=== PATIENT | female | born 2000 | race Caucasian/White ===

== ENCOUNTER 2020-07-05 12:04 | Outpatient (NON) | payer OTHER, SELFPAY ==
[2020-07-05 22:39] LABS: SARS-CoV-2 RNA PCR Negative
== END 2020-07-05 12:05 ==
LOC: ANHCOVIDDT 12:06
PROVIDERS: PCP Family Medicine; Visit Provider Physician Assistant
DX: J02.9 Acute pharyngitis, unspecified (principal); Z20.828 Contact with and (suspected) exposure to other viral communicable diseases
CPT/HCPCS: 87635; C9803; U0003

== ENCOUNTER 2023-11-14 15:46 | Outpatient (CLI) | payer OTHER, SELFPAY ==
--- NOTE | ~2023-11-14 | XR_ITS ---
EXAMINATION: XR abdomen/kub 1V DATE: 11/14/2023 16:08 INDICATION: Left lower quadrant abdominal pain. TECHNIQUE: A supine view of the abdomen on 2 radiographs was obtained. COMPARISON: None. FINDINGS: There are no dilated loops of bowel. There is a moderate volume of stool in the colon. Ther e is a 4 mm calcification in left pelvis, likely a phlebolith. IMPRESSION: 1. Normal bowel gas pattern. Reviewed, dictated and finalized at location E. DENTIAL SERVICE TECHNICIAN
== END 2023-11-14 15:47 | disposition home or self-care (01) ==
LOC: ANHIMG 15:51
PROVIDERS: PCP Family Medicine; Visit Provider Physician Assistant
DX: R10.32 Left lower quadrant pain (principal)
CPT/HCPCS: 74018

== ENCOUNTER 2024-09-06 16:37 | Outpatient (CLI) | payer OTHER, SELFPAY ==
--- NOTE | ~2024-09-06 | XR_ITS ---
EXAMINATION: XR chest 2V DATE: 09/06/2024 16:53 INDICATION: Fever TECHNIQUE: frontal and lateral views of the chest were obtained. COMPARISON: None FINDINGS: The lungs are clear with no focal airspace opacities, pulmonary edema, pleural effusion or pneumothor ax. The cardiomediastinal silhouette is normal. Visualized bones and soft tissues are unremarkable. IMPRESSION: 1. No acute cardiopulmonary disease. Reviewed, dictated and finalized at location B. STANT BROKER
== END 2024-09-06 16:38 | disposition home or self-care (01) ==
LOC: MICIMG 16:38
PROVIDERS: PCP Family Medicine; Visit Provider Physician Assistant Medical
DX: R50.9 Fever, unspecified (principal)
CPT/HCPCS: 71046

== ENCOUNTER 2024-10-06 10:48 | Outpatient (CLI) | payer OTHER, SELFPAY ==
--- NOTE | ~2024-10-06 | XR_ITS ---
TECHNIQUE: Hysterosalpingogram was performed by Dr. Alon Mina MD with fluoroscopic guidance. I was present to obtain fluoroscopic images. FINDINGS: Spiral Gear Generator radiograph demonstrates an unremarkable pelvis. Fluoroscopic images demonstrates nor mal appearing endometrial cavity which has been cannulated. Upon injection of contrast, both fallopi an tubes opacify and are normal in appearance. There is free spillage bilaterally. Uterus is withou t evidence of synechia. IMPRESSION: Patent fallopian tubes. Reviewed, dictated and finalized at location A. STED LIVING HOME DIRECTOR IMPRESSION: Patent fallopian tubes.
--- OUTSIDE RECORDS SUMMARY | 2024-10-06 11:57 | XMS_ITS | Clinical Summary ---
Author Organization [facility] Address [address] [place] [address] Care Team Providers Care Extrusion Machine Operator Name Role Phone Sukh Lockwood MD Unavailable [phone] Pablo Lockwood MD Primary Care Provider Allergies No known active allergies Medications acetaminophen-co deine (TYLENOL with CODEINE #3) 300-30 mg per tablet Take 1 tablet by mouth every 4 (four) hours as needed for pain 20 tablet 03/06/2023 Active Active Problems Problem Noted Date Diagnosed Date Acute appendicitis, unspecified acute appendicit is type 03/06/2023 S/P laparoscopic appendectomy 03/06/2023 Social History Tobacco Use Types Packs/Day Years Used Date Smoking Tobacco: Never Smokeless Tobacco: Never Tobacco Cessation:Counseling Given: Not Answered Social Connection and Isolat ion Panel [NHANES] Answer Date Recorded In a typical week, how many times do you talk on the phone with family, friends, or neighbors? More than three times a week 03/07/2023 How often do you get togethe r with friends or relatives? More than three times a week 03/07/2023 How often do you attend chur ch or lutheran services? Never 03/07/2023 Do you belong to any clubs o r organizations such as temple groups, unions, fraternal or athletic groups, or school groups? No 03/07/2023 How often do you attend meet ings of the clubs or organizations you belong to? Never 03/07/2023 Are you , , di vorced, , never , or living with a partner? Living with partner 03/07/2023 Overall Financial Resource Strain (CARDIA) Answe r Date Recorded How hard is it for you to pa y for the very basics like food, housing, medical care, and heating? Not hard at all 03/07/2023 Hunger Vital Sign Answer Date Recorded Within the past 12 months, y ou worried that your food would run out before you got the money to buy more. Never true 03/07/20 23 Within the past 12 months, t he food you bought just didn't last and you didn't have money to get more. Never true 03/07/2023 PRAPARE - Transportation Answer Date Re corded In the past 12 months, has l ack of transportation kept you from medical appointments or from getting medications? No 02/08 In the past 12 months, has l ack of transportation kept you from meetings, work, or from getting things needed for daily living? No 03/07/2023 Housing Stability Vital Sign Answer Quinton e Recorded In the last 12 months, was t here a time when you were not able to pay the mortgage or rent on time? No 03/07/2023 In the last 12 months, how many places have you lived? 1 03/07/2023 In the last 12 months, was t here a time when you did not have a steady place to sleep or slept in a fdc (including now)? No 03/07/2023 Personal Safety Answer Date Recorded Getting School Help Needed Not on file 03/21 Comments Unknown Sex and Gender Information Value Date Recorded Sex Assigned at Not on file Legal Sex Female 1:13 AM COLD HEADER Gender Identity Not on file Sexual Orientation Not on file Obstetrics History Last Filed Vital Signs Vital Sign Reading Time Taken Comments Blood Pressure 114/66 03/07/2023 11:17 AM CDT Pulse 83 03/07/2023 11:17 AM CDT Temperature 36.8 ??C (98.2 ??F) 03/07/2023 11:17 AM C DT Respiratory Rate 18 03/07/2023 11:17 AM CDT Oxygen Saturation 99% 03/07/2023 11:17 AM CDT Inhaled Oxygen Concentration - - Weight 74.8 kg (165 lb) 03/06/2023 2:33 PM CDT Height 157.5 cm (5' 2 ) 03/06/2023 2:33 PM CDT Body Mass Index 30.18 03/06/2023 2:33 PM CDT Plan of Treatment Health Maintenance Due Date Last Done Comments Cervical Cancer Screening 1998 Depression Screening 1998 Hepatitis C Screening 1998 HPV Vaccines (1 - 3-dose series) 2013 Regular Well Visit/Exam 18-64 2016 DTaP/Tdap/Td Vaccine (7 - Td or Tdap) 04/17/2020 04/17/2010, 02/02/2004, 07/01/2000, Additional history exists Influenza Vaccine (#1) 2024 Pneumococcal vaccine <65 Aged Out 001, 07/01/2000, 04/04/1999 No longer eligible based on patient's age to complete this topic Varicella Vaccines Completed 04/17/2010, 12/11/1999 Insurance [facility] CHOICE PLUS [facility] CHOICE PLUS Advance Directives For more information, please contact: [phone] * Full Code (Latest Code Status on File) Date Activated Date Inactivated Comments 03/06/2023 8:10 PM 03/07/2023 6:30 PM Care Teams Extrusion Machine Operator Relationship Specialty Start Date End Date Pablo Lockwood MD [address] [facility] [address] [place] [address] PCP - General Family Medicine 03/07/23 Sukh Lockwood MD [address] [place] [id number] Consulting Physician General Surgery 03/06/23
--- OUTSIDE RECORDS SUMMARY | 2024-10-06 11:57 | XMS_ITS | Clinical Summary ---
Author Organization [facility] Address [address] [place] [address]. [place] [address] [place] [address] Care Team Providers Care Mailroom Associate Name Role Phone Pablo Lockwood MD Primary Care Provider [phone] Allergies No known active allergies Medications azithromycin (ZITHROMAX) 250 MG tabletIndicatio ns:Bronchitis Take 2 tablets by mouth on day one then 1 daily for four days. 6 tablet 09/02/2024 Active albuterol sulfate HFA 108 (90 Base) MCG/ACT inhalerIndicati ons:Wheezing Inhale 2 puffs into the lungs every 6 (six) hours as needed for Wheezing. 18 g 09/02/2024 Active Active Problems No known active problems Encounters Date Type Department Care Team Description 09/02/2024 3:00 PM CLINIC BUSINESS MANAGER Office Visit [facility] Family & Internal Medicine [facility] [address] [place] [address] Nora Us PA URI (Cough, chest pain, shortness of breath, earache x 2 days) 09/02/2024 Travel from Last 3 Months Social History Tobacco Use Types Packs/Day Years Used Date Smoking Tobacco: Never Passive Smoke Exposure: Never Smokeless Tobacco: Never Tobacco Cessation:Counseling Given: No Comments No Sex and Gender Information Value Date Recorded Sex Assigned at Female 11/26/2023 8:08 AM CDT Legal Sex Female 8:10 PM CDT Gender Identity Female 11/26/2023 8:08 AM CDT Sexual Orientation Straight 11/26/2023 8: 08 AM CDT Last Filed Vital Signs Vital Sign Reading Time Taken Comments Blood Pressure 128/84 09/02/2024 3:08 PM CLINIC BUSINESS MANAGER Pulse 89 09/02/2024 3:08 PM CLINIC BUSINESS MANAGER Temperature 36.9 ??C (98.5 ??F) 09/02/2024 3:08 PM CS T Respiratory Rate 20 09/02/2024 3:08 PM CLINIC BUSINESS MANAGER Oxygen Saturation 98% 09/02/2024 3:08 PM CLINIC BUSINESS MANAGER Inhaled Oxygen Concentration - - Weight 78.2 kg (172 lb 6.4 oz) 09/02/2024 3:08 P M CLINIC BUSINESS MANAGER Height 157.5 cm (5' 2 ) 09/02/2024 3:08 PM CLINIC BUSINESS MANAGER Body Mass Index 31.53 09/02/2024 3:08 PM CLINIC BUSINESS MANAGER Plan of Treatment Health Maintenance Due Date Last Done Comments Cervical Cancer Screening Pap Smear (Age 21 to 29) Every 3 Years 1998 Cervical Cancer Screening 1998 Hepatitis B Vaccines (2 of 3 - 3-dose series) 1998 1998 Annual Physical 2001 PHQ-2 (Physician [place]) 2010 HPV Vaccines (1 - 3-dose series) 2013 Hepatitis C 2016 DTaP, Tdap and Td Vaccines (6 - Td or Tdap) 04/17/2020 04/17/2010, 02/02/2004, 07/01/2000, Additional history exists COVID-19 Vaccine ( season) 2024 Influenza Adult (#1) 2024 PHQ-2 (Physician [place]) 09/08/2024 Pneumococcal Vaccine: Pediatrics (0 to 5 Years) and At-Risk Patients (6 to 64 Years) Aged Out 12/01/2000, 07/01/2000, 04/04/1999 No longer eligible based on patient's age to complete this topic Meningococcal Vaccine Completed 03/25/2016, 010 Meningococcal B Vaccine Aged Out No l onger eligible based on patient's age to complete this topic RSV Immunizations Under 20 Months Aged Out No longer eligible based on patient's age to complete this topic Procedures Procedure Name Priority Date/Time Associated Diagnosis Comments CORONAVIRUS (COVID-19) INFLUENZA A & B ANTIGEN IA PANEL Routine 09/02/2024 Suspected COVID-19 virus infection from Last 3 Months Results * CORONAVIRUS (COVID-19) INFLUENZA A & B ANTIGEN IA PANEL (09/02/2024) CORONAVIRUS ANTIGEN IA NEGATIVE NEGATIVE [id number], [place] INFLUENZA A NEGATIVE NEGATIVE [id number], [place] INFLUENZA B NEGATIVE NEGATIVE [id number], [place] Internal Control: VALID VALID [id number], [place] NASAL STRUCTURE / Unknown 09/02/2024 Nora ANGULO MICROBIOLOGY - GENERAL ORDER NARESH Final Result Performing Organization Address City/State/[facility] Co de Phone Number [phone], [place] [address] [place] [address], from Last 3 Months Insurance [facility] Care Teams Mailroom Associate Relationship Specialty Start Date End Date Pablo Lockwood MD [address] [place] [address] PCP - General FAMILY PRACTICE 08/21/19
--- OUTSIDE RECORDS SUMMARY | 2024-10-06 11:57 | XMS_ITS | Referral Summary ---
Author Organization [facility] Address [address] [place] [address] Care Team Providers Care Risk Compliance Manager Name Role Phone Sukh Lockwood MD Unavailable [phone] Pablo Lockwood MD Primary Care Provider Allergies [...] often do you attend chur ch or yazidi services? Never 03/07/2023 Do you belong to any clubs o r organizations such as denominational groups, unions, fraternal or athletic groups, or [...] place to sleep or slept in a fpc (including now)? No 03/07/2023 Personal Safety Answer Date Recorded Getting School Help Needed Not on file 03/21 Comments Unknown Sex and Gender Information Value Date Recorded Sex Assigned at Not on file Legal Sex Female 1:13 AM TOOLER Gender Identity Not on file Sexual Orientation Not on file Last Filed Vital Signs Vital Sign Reading [...] 03/06/2023 2:33 PM CDT Plan of Treatment Not on file Insurance [facility] CHOICE PLUS [facility] CHO[facility] PLUS Advance Directives For more information, please contact: [phone] * Full Code (Latest Code Status on File) Date Activated Date Inactivated Comments 03/06/2023 8:10 PM 03/07/2023 6:30 PM Care Teams Risk Compliance Manager Relationship Specialty Start Date End Date Pablo Lockwood MD [address] [address] PCP - General Family Medicine 03/07/23 [place] [address] [place] [id number] Consulting Physician General Surgery 03/06/23
[2024-10-06 12:22] LABS: Beta HCG Quantitative < 2.39 mIU/ML
== END 2024-10-06 10:49 | disposition home or self-care (01) ==
PROVIDERS: PCP Family Medicine; Visit Provider Obstetrics & Gynecology
DX: N97.9 Female infertility, unspecified (principal)
CPT/HCPCS: 36415; 58340; 74740; 84702; Q9966